=== PATIENT | female | born 1940 | race Caucasian/White ===

== ENCOUNTER 2023-03-19 13:30 | Inpatient (IN) | payer MEDICARE ==
[~2023-03-19] VITALS: Ht 157.5 cm; Wt 55.6 kg
[2023-03-19 15:47] LABS: BASOPHILS # (AUTO) 0.08 K/uL (0.00-0.20); BASOPHILS % (AUTO) 0.9 % (0.0-5.0); EOSINOPHILS # (AUTO) 0.26 K/uL (0.00-0.70); EOSINOPHILS % (AUTO) 3.1 % (0.0-8.0); HEMATOCRIT 38.6 % (36-48); IMMATURE GRANULOCYTE ABSOLUTE 0.03 K/uL (0-1); LYMPHOCYTES # (AUTO) 2.3 K/uL (1.0-4.8); LYMPHOCYTES % (AUTO) 26.8 % (21.0-51.0); MEAN CORPUSCULAR HGB CONC 31.9 g/dL (32.0-36.0); MONOCYTES # (AUTO) 0.9 K/uL (0.1-1.0); MONOCYTES % (AUTO) 10.4 % (3.0-13.0); NEUTROPHILS # (AUTO) 4.9 K/uL (1.8-7.7); NEUTROPHILS % (AUTO) 58.4 % (40.0-77.0); PLATELET COUNT (AUTO) 264 K/uL (130-400); RED BLOOD CELL COUNT(AUTO) 4.24 MIL/uL (4.00-5.50); RED CELL DISTRIBUTION WIDTH 15.5 % (11.0-15.5); WHITE BLOOD COUNT (AUTO) 8.5 K/uL (4.8-10.8)
[2023-03-19 15:52] VITALS: BP 149/56; PULSE 68; RESP 18
[2023-03-19 15:54] LABS: CREATININE 0.9 mg/dL (0.5-1.5); POTASSIUM 3.9 mmol/L (3.5-5.1)
[2023-03-19 15:58] LABS: INR 0.97 (0.85-1.15); PROTHROMBIN TIME 11.3 SEC (9.6-11.6)
[2023-03-19 15:59] LABS: PARTIAL THROMBOPLASTIN TIME 29.1 SEC (26.3-35.5)
[2023-03-21] MEDS ORDERED: FEXO1TAB8 PO (12:56)
[2023-03-21] MEDS ORDERED: LEFL10TA19 PO (12:56)
[2023-03-21] MEDS ORDERED: PREG50CA64 PO (12:56)
[2023-03-21] MEDS ORDERED: LOVA20TA3 PO (12:56)
[2023-03-21] MEDS ORDERED: PROG200C11 PO (12:56)
[2023-03-21] MEDS ORDERED: BETA15CR5 TP (12:56)
[2023-03-21] MEDS ORDERED: LUBI24CA9 PO (12:56)
[2023-03-21] MEDS ORDERED: RALO60TA13 PO (12:56)
[2023-03-21] MEDS ORDERED: TIMO1DRO9 OU (12:56)
[2023-03-21] MEDS ORDERED: METR45CR TP (12:56)
[2023-03-21] MEDS ORDERED: METO-409 PO (12:56)
[2023-03-21] MEDS ORDERED: FLUT16H NASAL (12:56)
[2023-03-21] MEDS ORDERED: MORP15TA9 PO (12:56)
[2023-03-21] MEDS ORDERED: LEVO100T12 PO (12:56)
[2023-03-21] MEDS ORDERED: ESOM20CA39 PO (12:56)
[2023-03-21] MEDS ORDERED: OXYC1TAB12 PO (12:56)
[2023-03-21] MEDS ORDERED: SPIR25TA6 PO (12:56)
[2023-03-21] MEDS ORDERED: FURO20TA4 PO (12:56)
[2023-03-21] MEDS ORDERED: HYDR12.54 PO (12:56)
[2023-03-21] MEDS ORDERED: AEC81 PO (12:56)
[2023-03-26] VITALS (23 sets, daily range): BP systolic 82–164; BP diastolic 43–84; PULSE 56–75; RESP 14–18; O2SAT 98
[2023-03-26] MEDS ORDERED: CEFAZOLIN SODIUM 2 GM VIAL ONE (13:30)
[2023-03-26] MEDS ORDERED: LACTATED RINGERS 1000ML 1,000 ML IV ONE (13:30)
[2023-03-26] MEDS ORDERED: FENTANYL CITRATE PF 50 MCG/1 ML 2ML VIAL ONE ×4 (15:15→17:59)
[2023-03-26] MEDS ORDERED: MIDAZOLAM HCL 1 MG/ML 2ML VIAL ONE (15:15)
[2023-03-26] MEDS ORDERED: PROPOFOL 10 MG/ML 20ML VIAL IV ONE (15:16)
[2023-03-26] MEDS ORDERED: GENTAMICIN SULFATE 80 MG/2 ML VIAL ONE (15:49)
[2023-03-26] MEDS ORDERED: VANCOMYCIN 1G/250ML KIT 0 ML IV ONE (15:49)
[2023-03-26] MEDS ORDERED: THROMBIN-JMI 5000 UNIT/VIAL TP ONE ×2 (15:50→17:37)
[2023-03-26] MEDS ORDERED: LIDOCAINE 1%-EPI 1:100,000 20 ML VIAL IJ ONE (15:50)
[2023-03-26] MEDS ORDERED: BACITRACIN 28.4 GM OINT TP ONE (15:59)
[2023-03-26] MEDS ORDERED: ONDANSETRON 4MG INJ ONE (16:03)
[2023-03-26] MEDS ORDERED: ROCURONIUM 10MG/1ML SYR 10 MG/ML ML ONE (16:03)
[2023-03-26] MEDS ORDERED: PHENYLEPHRINE HCL 10 MG/ML 1ML VIAL IV ONE (17:19)
[2023-03-26] MEDS ORDERED: GENTAMICIN SULFATE 80 MG/2 ML VIAL TP ONE (17:38)
[2023-03-26] MEDS ORDERED: VANCOMYCIN 1G VIAL TP ONE (17:39)
[2023-03-26] MEDS ORDERED: BACITRACIN 1 EACH PACKET TP ONE (17:39)
[2023-03-26] MEDS ORDERED: NEOSTIGMINE 5MG/5ML SYR IV ONE (17:54)
[2023-03-26] MEDS ORDERED: GLYCOPYRROLATE 1 MG/5 ML SYRINGE ONE (17:54)
[2023-03-26] MEDS ORDERED: SUGAMMADEX SODIUM 200 MG/2 ML VIAL IV ONE (18:16)
[2023-03-26] MEDS: IBUPROFEN 800 MG TAB PO SCH (20:29)
[2023-03-26] MEDS: CEFAZOLIN SODIUM 1 GM VIAL IVPB SCH (20:29)
[2023-03-26] MEDS ORDERED: BENZOCAINE/MENTH/CETYLPYRD CL 1 EACH LOZENGE MM PRN (20:30)
[2023-03-26] MEDS ORDERED: [UNRECOGNIZED DRUG - OTHER] PO PRN (22:00)
[2023-03-26] MEDS ORDERED: LUBIPROSTONE 24 MCG CAP PO PRN (22:00)
[2023-03-26] MEDS ORDERED: ACETAMINOPHEN PO PRN (22:00)
[2023-03-26] MEDS ORDERED: OXYCODONE HCL PO PRN (22:00)
[2023-03-26] MEDS ORDERED: OXYCODONE/ACETAMIN 5/325MG TAB PO PRN (22:30)
[2023-03-27] VITALS: BP 98/52
[2023-03-27 03:15] VITALS: BP 111/49; PULSE 68
[2023-03-27] MEDS: CEFAZOLIN SODIUM 1 GM VIAL IVPB SCH ×2 (04:04→12:56)
[2023-03-27 07:25] VITALS: BP 123/52; PULSE 68; RESP 16
[2023-03-27] MEDS ORDERED: LEVOTHYROXINE 100 MCG TABLET PO SCH (07:30)
[2023-03-27 08:20] VITALS: O2SAT 100
[2023-03-27] MEDS: IBUPROFEN 800 MG TAB PO SCH (08:51)
[2023-03-27] MEDS ORDERED: ASPIRIN 81 MG EC TAB PO SCH (09:00)
[2023-03-27] MEDS ORDERED: PREGABALIN 25 MG CAP PO SCH (09:00)
[2023-03-27] MEDS ORDERED: FLUTICASONE PROPIONATE 50MCG/SPRAY 16 GM BOTTLE EN SCH ×2 (09:00→21:00)
[2023-03-27] MEDS ORDERED: MORPHINE 15MG SR TAB PO SCH (09:00)
[2023-03-27] MEDS ORDERED: NON-FORMULARY MEDICATION 1 EACH (Hydrochlorothiazide 12.5 MG) PO SCH (09:00)
[2023-03-27] MEDS ORDERED: NON-FORMULARY MEDICATION 1 EACH (Pregabalin 50 MG) PO SCH (09:00)
[2023-03-27] MEDS ORDERED: FUROSEMIDE 20 MG TABLET PO SCH (09:00)
[2023-03-27] MEDS ORDERED: BETAMETHASONE DP AUG 0.05% TP SCH (09:00)
[2023-03-27] MEDS ORDERED: METRONIDAZOLE APPL TP SCH (09:00)
[2023-03-27] MEDS ORDERED: [UNRECOGNIZED DRUG - OTHER] OU SCH (09:00)
[2023-03-27] MEDS ORDERED: TIMOLOL MALEATE 0.5% 5 ML BOTTLE OU SCH (09:00)
[2023-03-27] MEDS ORDERED: HYDROCHLOROTHIAZIDE 25 MG TABLET PO SCH (09:00)
[2023-03-27] MEDS ORDERED: TIMOLOL MALEATE OU SCH (09:00)
[2023-03-27] MEDS ORDERED: RALOXIFENE HCL 60 MG TABLET PO SCH (09:00)
[2023-03-27] MEDS ORDERED: ESOMEPRAZOLE MAGNESIUM 20 MG PO SCH (09:00)
[2023-03-27] MEDS ORDERED: PANTOPRAZOLE 40 MG TAB DR PO SCH (09:00)
[2023-03-27] MEDS ORDERED: NON-FORMULARY MEDICATION 1 EACH (Metoprolol Succinate 100 MG) PO SCH (21:00)
[2023-03-27] MEDS ORDERED: METOPROLOL SUCCINATE 50 MG TAB.SR.24H PO SCH (21:00)
[2023-03-27] MEDS ORDERED: ATORVASTATIN 10 MG TABLET PO SCH (21:00)
[2023-03-27] MEDS ORDERED: Leflunomide 10 MG PO SCH (21:00)
[2023-03-27] MEDS ORDERED: SPIRONOLACTONE 25 MG TAB PO SCH (21:00)
[2023-03-27] MEDS ORDERED: NON-FORMULARY MEDICATION 1 EACH (Lovastatin 20 MG) PO SCH (21:00)
== END 2023-03-27 15:15 | disposition home or self-care (01) | DRG 30 ==
LOC: DAHIP 03-26 12:59 → 4DH 03-26 19:30
PROVIDERS: ADMIT Neurological Surgery; ATTEND Neurological Surgery
PROC: 00PV0MZ Removal of Neurostimulator Lead from Spinal Cord, Open Approach (ICD-10-PCS; principal; 2023-03-27)
PROC: 0JPT0MZ Removal of Stimulator Generator from Trunk Subcutaneous Tissue and Fascia, Open Approach (ICD-10-PCS; 2023-03-27)
PROC: BR10ZZZ Fluoroscopy of Cervical Spine (ICD-10-PCS; 2023-03-27)
DX: T85.112A Breakdown (mechanical) of implanted electronic neurostimulator of spinal cord electrode (lead), initial encounter (principal); T85.113A Breakdown (mechanical) of implanted electronic neurostimulator, generator, initial encounter; E03.9 Hypothyroidism, unspecified; E78.5 Hyperlipidemia, unspecified; I10 Essential (primary) hypertension; M48.00 Spinal stenosis, site unspecified; G89.29 Other chronic pain; Y83.8 Other surgical procedures as the cause of abnormal reaction of the patient, or of later complication, without mention of misadventure at the time of the procedure; Y75.3 Surgical instruments, materials and neurological devices (including sutures) associated with adverse incidents; Y92.89 Other specified places as the place of occurrence of the external cause; Z79.899 Other long term (current) drug therapy
CPT/HCPCS: 36415; 72020; 72141; 72146; 72148; 80048; 85025; 85610; 85730; 93005; G0378; J0690; J1580; J2250; J2371; J2405; J2704; J2710; J3010; J3370; J3490; J7120; A4215; A4221; A4222; A4223; A4600; A4663; A6260

== ENCOUNTER → 2023-08-18 | Outpatient (CLI) | payer MEDICARE ==
[~2023-08-18] MED LIST: AEC81 PO; BETA15CR5 TP; ESOM20CA39 PO; FEXO1TAB8 PO; FLUT16H NASAL; FURO20TA4 PO; HYDR12.54 PO; LEFL10TA19 PO; LEVO100T12 PO; LOVA20TA3 PO; LUBI24CA9 PO; METO-409 PO; METR45CR TP; MORP15TA9 PO; OXYC1TAB12 PO; PREG50CA64 PO; PROG200C11 PO; RALO60TA13 PO; SPIR25TA6 PO; TIMO1DRO9 OU
== END | disposition home or self-care (01) ==
LOC: SHCH 09:56
PROVIDERS: ATTEND Internal Medicine
DX: G45.1 Carotid artery syndrome (hemispheric) (principal); I77.9 Disorder of arteries and arterioles, unspecified; I10 Essential (primary) hypertension; I34.0 Nonrheumatic mitral (valve) insufficiency; I35.1 Nonrheumatic aortic (valve) insufficiency; E03.9 Hypothyroidism, unspecified; E55.9 Vitamin D deficiency, unspecified; Z79.899 Other long term (current) drug therapy; Z90.49 Acquired absence of other specified parts of digestive tract; Z98.890 Other specified postprocedural states
CPT/HCPCS: 93880

== ENCOUNTER → 2023-09-16 | Outpatient (CLI) | payer MEDICARE | END | disposition home or self-care (01) | LOC: RAH 13:03 | PROVIDERS: ATTEND Internal Medicine | DX: G31.9 Degenerative disease of nervous system, unspecified (principal); R51.9 Headache, unspecified | CPT/HCPCS: 70450 ==

== ENCOUNTER → 2024-02-12 | Outpatient (CLI) | payer MEDICARE ==
[~2024-02-12] MED LIST changes: -ESOM20CA39 PO; +ESOM20CA51 PO
== END | disposition home or self-care (01) ==
LOC: RAH 12:36
PROVIDERS: ATTEND Internal Medicine Gastroenterology
DX: R13.11 Dysphagia, oral phase (principal)
CPT/HCPCS: 74230; 92610

== ENCOUNTER → 2024-04-08 | Outpatient (CLI) | payer MEDICARE ==
[~2024-04-08] MED LIST changes: +BETA15CR12 TP; -BETA15CR5 TP
--- NOTE | 2024-04-08 15:40 | HMCIMG ---
DEXA BONE DENSITY SURVEY REASON: Age-related osteoporosis without current pathological fracture COMPARISON: None TECHNIQUE: DEXA bone densitometry was performed in the left hip and in the left forearm. FINDINGS: Mean bone mass density in the femoral neck is 0.809 g/sq cm, T score -0.4, within normal limits. Total left forearm T score however is -2.6 corresponding with osteoporosis. IMPRESSION: 1. Osteoporosis consistent with a high fracture risk.
== END | disposition home or self-care (01) ==
LOC: RAH 13:56
PROVIDERS: ATTEND Internal Medicine
DX: M81.0 Age-related osteoporosis without current pathological fracture (principal)
CPT/HCPCS: 77080